=== PATIENT | male | born 2000 | race Caucasian/White ===

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

== ENCOUNTER 2019-02-21 23:11 | Emergency (ER) | payer OTHER ==
[2019-02-22 00:12] LABS: ADD MAN DIFF? NO
[2019-02-22 00:14] LABS: BASOPHIL # 0.1 10^3/ul (0.0-0.1); BASOPHILS % 0.4 % (0.0-2.0); EOSINOPHILS # 0.2 10^3/ul (0.0-0.5); EOSINOPHILS % 0.9 % (0.0-7.0); HEMATOCRIT 44.4 % (42.0-52.0); HEMOGLOBIN 14.3 g/dl (14.0-18.0); LYMPHOCYTES # 1.6 10^3/ul (0.8-2.9); LYMPHOCYTES % 9.8 % (18.0-55.0); MEAN CORPUSCULAR HGB CONC 32.2 g/dl (32.0-37.0); MEAN CORPUSCULAR VOLUME 77.5 fl (72.0-104.0); MEAN PLATELET VOLUME 9.1 fl (7.4-10.4); MONOCYTE # 0.9 10^3/ul (0.3-0.9); MONOCYTES % 5.6 % (0.0-13.0); NEUTROPHIL # 13.9 10^3/ul (1.6-7.5); NEUTROPHILS % 82.8 % (30.0-74.0); PLATELET COUNT 360 10^3/UL (140-415); RED BLOOD COUNT 5.73 10^6/ul (4.70-6.10)
[2019-02-22 00:14] LABS: WHITE BLOOD COUNT 16.7 10^3/ul (4.8-10.8)
[2019-02-22] MEDS: ACETAMINOPHEN 325 MG TAB PO (00:19)
[2019-02-22] MEDS: SODIUM CHLORIDE 0.9% 1L BAG IV* (00:21)
[2019-02-22] MEDS: CEFEPIME 2GM/50 ML (PMX) 50 ML IVPB (00:21)
[2019-02-22 00:35] LABS: INR 0.96; PROTIME 12.9 Sec (11.9-14.9)
[2019-02-22 00:36] LABS: PARTIAL THROMBOPLASTIN TIME 26.5 Sec (23.0-35.0)
[2019-02-22 00:42] LABS: ALANINE AMINOTRANSFERASE 139 IU/L (13-69); ALBUMIN 4.6 g/dl (3.3-4.9); ALBUMIN/GLOBULIN RATIO 1.48; ALKALINE PHOSPHATASE 141 IU/L (42-121); ANION GAP 10 (5-13); ASPARTATE AMINO TRANSFERASE 57 IU/L (15-46); BILIRUBIN,INDIRECT 0.5 mg/dl (0-1.1); BILIRUBIN,TOTAL 0.5 mg/dl (0.2-1.3); BLOOD UREA NITROGEN 12 mg/dl (7-20); CALCIUM 11.5 mg/dl (8.4-10.2); CARBON DIOXIDE 29 mmol/L (21-31); CHLORIDE 103 mmol/L (97-110); CREATININE 0.99 mg/dl (0.61-1.24); Estimated GFR > 60 mL/min (>60); GLUCOSE 87 mg/dl (70-220); POTASSIUM 3.8 mmol/L (3.5-5.1); SODIUM 142 mmol/L (135-144); TOTAL PROTEIN 7.7 g/dl (6.1-8.1)
[2019-02-22 00:52] LABS: TROPONIN-I < 0.012 ng/ml (0.000-0.120)
[2019-02-22] MEDS: VANCOMYCIN 1 GM (PMX) 250 ML IVPB (01:13)
[2019-02-22 02:07] LABS: ADD UMIC NO; UR ASCORBIC ACID 40 mg/dL (NEGATIVE); UR BILIRUBIN (Dip) NEGATIVE (NEGATIVE); UR BLOOD (Dip) NEGATIVE (NEGATIVE); UR CALCIUM OXALATE CRYSTAL MANY /HPF (NONE SEEN); UR CLARITY SLIGHTLY CLOUDY (CLEAR); UR COLOR YELLOW (YELLOW); UR GLUCOSE (Dip) NEGATIVE (NEGATIVE); UR KETONES (Dip) NEGATIVE (NEGATIVE); UR LEUKOCYTE ESTERASE (Dip) NEGATIVE Leu/ul (NEGATIVE); UR NITRITE (Dip) NEGATIVE (NEGATIVE); UR RBC 1 /HPF (0-5); UR TOTAL PROTEIN (Dip) NEGATIVE (NEGATIVE); UR UROBILINOGEN (Dip) 2+ mg/dL (NEGATIVE); UR WBC 1 /HPF (0-5)
[2019-02-22 04:47] LABS: LACTIC ACID 1.1 mmol/L (0.5-2.0)
== END 2019-02-22 04:28 | disposition home or self-care (01) ==
LOC: E/R 23:11
DX: B34.9 Viral infection, unspecified (principal)
CPT/HCPCS: 36415; 71045; 80053; 81001; 81003; 83605; 84484; 85025; 85610; 85730; 87040-91; 87086; 93005; 96365; 96366; 96367; 99285-25

== ENCOUNTER 2019-04-11 03:05 | Emergency (ER) | payer OTHER ==
[2019-04-11] MEDS: IBUPROFEN 800 MG TAB PO (03:41)
== END 2019-04-11 05:06 | disposition home or self-care (01) ==
LOC: FTE 05:06
DX: M25.552 Pain in left hip (principal)
CPT/HCPCS: 73510; 99283-25